=== PATIENT | female | born 1995 | race Caucasian/White ===

== ENCOUNTER 2017-07-01 21:29 | Emergency (ER) | payer BC ==
[~2017-07-01] VITALS: Ht 177.8 cm; Wt 69.8 kg
[~2017-07-01 21:29] MED LIST: Z.0.BCPILL PO
[2017-07-01 21:33] VITALS: BP 125/67; PULSE 80; RESP 14; TEMP 97.9; O2SAT 99
--- NOTE | 2017-07-01 21:44 | PD ---
HPI Chief Complaint: Complaint Time Seen by Provider: 21:44 Travel History International Travel<30 days: No Contact w/Intl Traveler<30days: No Traveled to known affect area: No History of Present Illness HPI 22 year old female presents to the emergency department for evaluation of UTI. Patient reports urinary symptoms since Monday. She went to an urgent care today and was given an injection of an antibiotic and given RX for Cipro and Pyridium. She has not yet started her antibiotic. She was concerned that she ran a fever so she came to the emergency department. She denies any chronic medical problems or taking any other medications. She denies any abnormal vaginal discharge. No other symptoms. PFSH Past Medical History Immunizations Current: Yes ?: Not LMP: week ago Social History Alcohol Use: No Tobacco Use: No Substance Use: No Allergies-Medications (Allergen,Severity, Reaction): Coded Allergies: No Known Allergies (Verified , 07/01/17) Reported Meds & Prescriptions Reported Meds & Active Scripts Active Reported Bl[place]ovi 24 Fe 12/16 (Norethindrone-Ethinyl Estradiol-Fe) 1-20 Mg-Mcg Tab 1 Tab PO DAILY Review of Systems Except as stated in HPI: all other systems reviewed are Neg Physical Exam Narrative GENERAL: Well-nourished, well-developed female patient, ambulatory and in no acute distress. Afebrile. SKIN: Focused skin assessment warm/dry. HEAD: Normocephalic. Atraumatic. EYES: No scleral icterus. No injection or drainage. NECK: Supple, trachea midline. No JVD or lymphadenopathy. CARDIOVASCULAR: Regular rate and rhythm without murmurs, gallops, or rubs. RESPIRATORY: Breath sounds equal bilaterally. No accessory muscle use. Lung sounds are clear to auscultation throughout. GASTROINTESTINAL: Abdomen soft, non-tender, nondistended. MUSCULOSKELETAL: No cyanosis, or edema. BACK: Nontender without obvious deformity. No CVA tenderness. Data Data Last Documented VS Vital Signs Date Time Temp Pulse Resp B/P Pulse Ox O2 Delivery O2 Flow Rate FiO2 07/01/17 21:33 97.9 80 14 125/67 99 Orders Urinalysis - C+S If Indicated (07/01/17 21:43) Urine Culture (07/01/17 21:48) Labs Laboratory Tests Test 07/01/17 21:48 Urine Color ORANGE Urine Turbidity SLIGHT Urine pH 5.0 Urine Specific [place] 1.012 Urine Protein 300 OR GREATER mg/dL Urine Glucose (UA) 250 mg/dL Urine Ketones TRACE mg/dL Urine Occult Blood NEG Urine Nitrite POS Urine Bilirubin NEG Urine Leukocyte Esterase TRACE Urine RBC 3-5 /hpf Urine WBC 9-14 /hpf Urine WBC Clumps FEW Urine Squamous Epithelial 0-5 /hpf Cells Urine Bacteria RARE /hpf Microscopic Urinalysis Comment CULTURE INDICATED MDM Medical Decision Making Medical Screen Exam Complete: Yes Emergency Medical Condition: Yes Medical Record Reviewed: Yes Differential Diagnosis UTI vs. pyelonephritis vs. dysuria Narrative Course 22 year old female presents to the emergency department for evaluation of UTI. She was prescribed Cipro and Pyridium today but has not yet started her medications. UA is ordered and pending. UA shows positive nitrate, trace leukocyte esterase, 9014 WBC, wbc clumps. Patient is to take the Cipro as directed. Urine culture will be completed. Patient is to drink plenty water. The primary care physician. She is to return here for any acute worsening of symptoms. The patient was discharged in stable condition with instructions, including return instructions and follow up instructions. Diagnosis Primary Impression: Urinary tract infection Qualified Code: N30.00 - Acute cystitis without hematuria Referrals: Primary Care Physician call for appointment Patient Instructions: General Instructions, Urinary Tract Infection in Women ( ED) Additional Instructions: Take antibiotic, ciprofloxacin, as directed until gone. Drink plenty of fluids. Follow-up with your primary care physician. Return to the emergency department for any acute worsening of symptoms. Med/Other Pt SpecificInfo: No Change to Meds Disposition: 01 DISCHARGE HOME Condition: Stable Sara Gardiner Jul 01, 2017 21:44
[2017-07-01 21:53] LABS: BLOOD, URINE NEG (NEG); GLUCOSE,URINE 250 mg/dL (NEG); KETONE, URINE TRACE mg/dL (NEG)
[2017-07-01] MEDS ORDERED: NORE1TAB73 PO (21:54)
[2017-07-01 21:58] LABS: NITRITE,URINE POS (NEG)
[2017-07-01 21:59] LABS: URINE COLOR ORANGE (YELLW/STRAW)
[2017-07-01 22:00] LABS: BACTERIA, URINE RARE /hpf; COMMENT (UR) CULTURE INDICATED; CULTURE IF INDICATED CULTURE INDICATED; SQUAMOUS EPITHELIAL CELL URINE 0-5 /hpf (0-5)
== END 2017-07-01 22:14 | disposition home or self-care (01) ==
LOC: PHEFT 21:29
DX: N30.00 Acute cystitis without hematuria (principal)
CPT/HCPCS: 81001; 87086; 99283